=== PATIENT | female | born 1950 | race Caucasian/White ===

== ENCOUNTER → 2019-01-31 11:05 | Outpatient (CLI) | payer MEDICARE, OTHER, SELFPAY ==
[2019-01-31 12:08] LABS: Add Manual Diff / Slide Review NO; Basophils Absolute Auto 100 /uL (0-100); Basophils Percent Auto 1.1 % (0-2); Eosinophils Absolute Auto 100 /uL (0-450); Eosinophils Percent Auto 1.6 % (2-4); Hematocrit 44.7 % (36-46); Hemoglobin 14.9 g/dL (12.0-16.0); Lymphocytes Absolute Auto 2500 /uL (1100-4500); Lymphocytes Percent Auto 37.5 % (25-40); Mean Corpuscular HGB Conc 33.4 % (30-36); Mean Corpuscular Hemoglobin 29.4 PG (26-34); Mean Corpuscular Volume 88.1 fL (80-100); Monocytes Absolute Auto 600 /uL (0-900); Monocytes Percent Auto 9.3 % (3-14); Neutrophils Absolute Auto 3400 /uL (1500-7000); Neutrophils Percent Auto 50.5 % (50-75); Platelet Count 314 X10^3/uL (150-400); Red Blood Cell Count 5.07 X10^6/uL (4.0-5.2); Red Cell Distribution Width 13.4 % (11.6-14.8); White Blood Cell Count 6.8 X10^3/uL (4.5-11.0)
[2019-01-31 12:31] LABS: Alanine Aminotransferase 17 IU/L (<35); Albumin 4.2 g/dL (3.5-5.0); Albumin Globulin Ratio 1.4 (1.0-2.8); Alkaline Phosphatase 79 U/L (38-126); Aspartate Aminotransferase 20 IU/L (14-36); BUN Creatinine Ratio 22.5 (6-22); Bilirubin Total 0.6 mg/dL (0.2-1.3); Blood Urea Nitrogen 18 mg/dL (7-17); Carbon Dioxide 29 mmol/L (22-32); Chloride 105 mmol/L (98-107); Cholesterol 244 mg/dL (140-199); Estimated Glomerular Filt Rate > 60.0 mL/min (>60); Globulin 2.9 g/dL (1.7-4.1); Glucose 94 mg/dL (80-110); HDL Cholesterol 64 mg/dL (40-60); HEMOLYSIS < 15 (0-50); LDL Cholesterol Calculated 169 mg/dL (<100); Potassium 5.1 mmol/L (3.4-5.1); Sodium 141 mmol/L (137-145); Total Protein 7.1 g/dL (6.3-8.2); Triglycerides 55 mg/dL (35-150)
[2019-01-31 13:03] LABS: Free T3, Triiodothyronine Free 3.77 pg/mL (2.77-5.27); Free T4, Direct Thyroxine 0.99 ng/dL (0.78-2.19)
[2019-02-02 18:06] LABS: Urea Breath Test >18YRS NOT DETECTED
== END ==
PROVIDERS: PCP Nurse Practitioner; Visit Provider Nurse Practitioner
DX: K21.9 Gastro-esophageal reflux disease without esophagitis (principal); K22.10 Ulcer of esophagus without bleeding; E78.5 Hyperlipidemia, unspecified; R00.2 Palpitations
CPT/HCPCS: 80053; 80061; 83013; 84439; 84443; 84481; 85025

== ENCOUNTER → 2019-02-22 12:27 | Outpatient (CLI) | payer MEDICARE, OTHER, SELFPAY ==
--- NOTE | 2019-02-22 | DI.MG.S_ITS ---
BILATERAL DIGITAL SCREENING MAMMOGRAM 3D/2D WITH CAD: 02/22/2019 CLINICAL: Routine screening. Comparison is made to exam dated: 04/06/2017 [facility]. The tissue of both breasts is heterogeneously dense. This may lower the sensitivity of mammography. Current study was also evaluated with a Computer Aided Detection (CAD) system. No significant masses, calcifications, or other findings are seen in either breast. There has been no significant interval change. IMPRESSION: NEGATIVE There is no mammographic evidence of malignancy. A 1 year screening mammogram is recommended. This exam was interpreted at Station ID: [id number]. NOTE: For mammograms, a report in lay terms will be sent to the patient. Approximately 15% of breast malignancies will not be visualized mammographically. In the management of a palpable breast mass, a negative mammogram must not discourage biopsy of a clinically suspicious lesion. Electronically Signed By: Hema galeas/glory:02/22/2019 13:11:15 letter sent: Normal Exam ACR BI-RADS Category 1: Negative [id number]
--- NOTE | 2019-02-22 12:35 | DI.US.S_ITS ---
PROCEDURE: US CAROTID DOPPLER BI INDICATIONS: OSTEOPOROSIS STENOSIS OF CAROTID ARTERY TECHNIQUE: Color and pulse Doppler interrogation was performed of both carotid systems, with image documentation and velocity measurements. COMPARISON: None. FINDINGS: Stenosis calculations are based on SRU (Society of Radiologists in Ultrasound) criteria. Right side: Brachial blood pressure: 117/64 mm Hg. Common carotid artery peak systolic velocity: 94 cm/sec. Internal carotid artery peak systolic velocity: 82 cm/sec. Internal carotid artery end diastolic velocity: 32 cm/sec. External carotid artery peak systolic velocity: 83 cm/sec. ICA/CCA peak systolic ratio: 0.9. Palm scale imaging description: Mild scattered plaque. Percent internal carotid artery stenosis: Less than 50% stenosis. Vertebral artery: Flow direction is antegrade. Left side: Brachial blood pressure: 114/68 mm Hg. Common carotid artery peak systolic velocity: 71 cm/sec. Internal carotid artery peak systolic velocity: 68 cm/sec. Internal carotid artery end diastolic velocity: 30 cm/sec. External carotid artery peak systolic velocity: 85 cm/sec. ICA/CCA peak systolic ratio: 1.0. Palm scale imaging description: Mild scattered plaque. Percent internal carotid artery stenosis: Less than 50%. Vertebral artery: Flow direction is antegrade. IMPRESSION: 1. Less than 50% bilateral internal carotid artery stenosis. 2. Bilateral cervical neck lymph nodes with the largest measuring up to 8mm in maximal short axis. Recommend clinical correlation and management. Dictated by: Jett NIX Interpreted: Remi Nova MD on 02/22/2019 at 14:48 Approved by: Remi Nova M.D. on 02/22/2019 at 19:46
== END ==
PROVIDERS: PCP Nurse Practitioner; Visit Provider Nurse Practitioner
DX: I65.23 Occlusion and stenosis of bilateral carotid arteries (principal); Z12.31 Encounter for screening mammogram for malignant neoplasm of breast; Z13.820 Encounter for screening for osteoporosis; M85.852 Other specified disorders of bone density and structure, left thigh; Z78.0 Asymptomatic menopausal state; F17.200 Nicotine dependence, unspecified, uncomplicated
CPT/HCPCS: 77063; 77067; 77080; 93880

== ENCOUNTER → 2021-09-02 14:15 | Outpatient (CLI) | payer MEDICARE, OTHER, SELFPAY ==
[2021-09-02 14:52] LABS: Alanine Aminotransferase 14 IU/L (<35); Albumin 4.2 g/dL (3.5-5.0); Albumin Globulin Ratio 1.3 (1.0-2.8); Alkaline Phosphatase 66 U/L (38-126); Aspartate Aminotransferase 20 IU/L (14-36); BUN Creatinine Ratio 21.1 (6-22); Bilirubin Total 0.8 mg/dL (0.2-1.3); Blood Urea Nitrogen 16 mg/dL (7-17); Calcium 9.5 mg/dL (8.4-10.2); Carbon Dioxide 27 mmol/L (22-32); Chloride 106 mmol/L (98-107); Cholesterol 232 mg/dL (140-199); Estimated Glomerular Filt Rate > 60 mL/min (>60); Globulin 3.3 g/dL (1.7-4.1); Glucose 94 mg/dL (80-110); HDL Cholesterol 57 mg/dL (40-60); HEMOLYSIS < 15 (0-50); LDL Cholesterol Calculated 155 mg/dL (<100); Potassium 4.5 mmol/L (3.4-5.1); Sodium 143 mmol/L (137-145); Total Protein 7.5 g/dL (6.3-8.2); Triglycerides 98 mg/dL (35-150)
[2021-09-02 17:30] LABS: Hep C Virus Ab w/Reflex Quant NEGATIVE s/c (NEGATIVE)
[2021-09-03 03:13] LABS: Free T3, Triiodothyronine Free 3.83 pg/mL (2.77-5.27); Free T4, Direct Thyroxine 1.18 ng/dL (0.78-2.19)
== END ==
PROVIDERS: PCP Nurse Practitioner; Referring Provider Nurse Practitioner; Visit Provider Nurse Practitioner
DX: E78.5 Hyperlipidemia, unspecified (principal); R00.2 Palpitations; Z79.899 Other long term (current) drug therapy
CPT/HCPCS: 36415; 80053; 80061; 84439; 84443; 84481; 86803

== ENCOUNTER 2022-10-27 08:11 | Emergency (ER) | payer MEDICARE, OTHER, SELFPAY ==
[2022-10-27] VITALS (11 sets, daily range): BP systolic 94–158; BP diastolic 51–68; PULSE 52–73; RESP 14–18; TEMP 36.7; O2SAT 95–99; BMI 22.3
--- NOTE | 2022-10-27 08:40 | DI.CT.S_ITS ---
PROCEDURE: CT ABDOMEN PELVIS W CON INDICATIONS: IV contrast only/right lower quadrant pain TECHNIQUE: After the administration of oral and IV contrast, axial sections were acquired from the lung bases to the pubic symphysis. Coronal and sagittal reformats were performed. For radiation dose reduction, the following was used: automated exposure control, adjustment of mA and/or kV according to patient size. COMPARISON: None. FINDINGS: Image quality: Excellent. Lung bases: Unremarkable. Heart: No significant findings. ABDOMEN: Liver: Normal size. There is a 1.3 cm hypodensity the inferior right hepatic lobe, most likely a cyst or hemangioma. Gallbladder: Gallbladder is contracted. Possible small gallstones or gallbladder polyps. Biliary ducts: Unremarkable. Pancreas: Unremarkable. Spleen: Unremarkable. Adrenal Glands: Unremarkable. Kidneys and Ureters: There are couple of hypodense nodules in right kidney, probably renal cyst. Stomach and Bowel: Stomach is contracted. Gastric wall appears thickened, which is likely due to lack of distention. Small bowel loops and colon are normal in caliber. Appendix is normal. There is a large amount of stool in colon. Peritoneum: No abnormal intraperitoneal fluid. No free air. Ventral Wall: No hernia. Abdominal Nodes: No retroperitoneal or mesenteric adenopathy by size criteria. Vessels: Aorta and inferior vena cava are normal in size. PELVIS: Pelvic Organs: Uterus is unremarkable. Ovaries are not visualized. No adnexal mass. Mildly prominent gonadal veins are noted. Bladder: Unremarkable. Pelvic Nodes: No enlarged lymph nodes. Miscellaneous: No inguinal hernias are seen. Bones: Moderate to severe degenerative disc and facet disease in the lumbar spine. IMPRESSION: 1. Normal appendix. A cause for right lower quadrant pain is not definitively identified. 2. A large amount of stool in colon. 3. Contracted gallbladder. Question small gallstones versus gallbladder polyps. If clinically indicated, ultrasound can be obtained for further evaluation. 4. Prominent gonadal veins suggesting pelvic congestion syndrome. Dictated by: Karin Swann M.D. on 10/27/2022 at 11:27 Approved by: Karin Swann M.D. on 10/27/2022 at 11:34
--- NOTE | 2022-10-27 08:45 | ED.ABDPAIN ---
HPI - Abdominal Pain General Chief Complaint: Abdominal Pain Stated Complaint: poss apendix problems Time Seen by Provider: 10/27/22 08:35 Source: patient Mode of arrival: Ambulatory History of Present Illness HPI narrative: Patient here with . Complains of sudden onset right lower quadrant pain radiating to the back with nausea but no fever vomiting. No urinary complaints. Pain is gone now. No recent illness. No cough cold congestion or fever chills. Patient still has her appendix. Denies any urinary frequency or urgency. No Hematuria. Related Data Home Medications Medication Instructions Recorded Confirmed [ph miracle] PO DAILY ##0 09/06/21 cholecalciferol (vitamin D3) 250 250 mcg PO DAILY 09/06/21 09/06/21 mcg (10,000 unit) capsule magnesium glycinate PO 09/06/21 09/06/21 Previous Rx's Medication Instructions Recorded niacin 500 mg tablet,extended 500 mg PO BEDTIME #90 tabs 09/06/21 release Allergies Allergy/AdvReac Type Severity Reaction Status Date / Time No Known Drug Allergies Allergy Verified 10/27/22 08:15 Review of Systems Review of Systems Narrative: GENERAL: negative chills, fatigue, malaise, fever, sweats. HEENT: negative sinus pain, ear pain, sore throat RESPIRATORY: negative dyspnea, cough CARDIOVASCULAR: negative chest pain, palpitations GASTROINTESTINAL: Positive nausea, negative vomiting, positive abdominal pain : negative dysuria, frequency, hematuria MUSCULOSKELETAL: negative muscle or bony pain SKIN: negative rash, skin lesions NEUROLOGIC: negative weakness, numbness ROS Unobtainable: All systems reviewed & are unremarkable except as noted in HPI and below Patient History Medical History Cervical somatic dysfunction Chicken pox Chronic neck pain Chronic shoulder pain Chronic thoracic back pain Cranial somatic dysfunction Elevated low density lipoprotein (LDL) cholesterol level Measles Migraine Mumps Rib pain on right side Somatic dysfunction of rib Stiff neck Thoracic region somatic dysfunction TMJ click Upper extremity somatic dysfunction Surgical History Anesthesia History of cataract surgery (~2008) History of tonsillectomy (~1964) Family History Father Cancer Hypertension Stroke Mother Cancer Brother Cancer Grandfather Cancer Social History Smoking Status: Current every day smoker alcohol intake: current substance use type: does not use Smoking Status: Current every day smoker alcohol intake frequency: holidays/special occasions only Substance Use Type: does not use Exam Narrative Exam Narrative: GENERAL: in no distress, not toxic not dyspneic HEAD: Normocephalic. EYES: Pupils equal round ENT: Mucous membranes moist. NECK: Trachea midline. CARDIOVASCULAR: Regular rate and rhythm RESPIRATORY: Clear to auscultation. Breath sounds equal bilaterally. No wheezes, rales, or rhonchi. GASTROINTESTINAL: Abdomen soft, abdomen is soft flat nontender no peritoneal signs. No McBurney point tenderness. No CVA tenderness. No pain out of proportion to exam. Bowel sounds are present EXTREMITIES: No gross deformities. BACK: No flank tenderness. NEURO: AOx4. SKIN: Warm and dry PSYCH: Not anxious, is cooperative Initial Vital Signs Initial Vital Signs: Vital Signs Temperature 98.0 F 10/27/22 08:15 Pulse Rate 62 10/27/22 08:15 Respiratory Rate 18 10/27/22 08:15 Blood Pressure 115/65 10/27/22 08:15 Pulse Oximetry 97 10/27/22 08:15 Oxygen Delivery Method Room Air 10/27/22 08:15 Course Orders Ordered: Discontinued Medications Sodium Chloride (Normal Saline 0.9%) 1,000 mls @ 1,000 mls/hr IV BOLUS ONE Stop: 10/27/22 09:39 Last Infusion: 10/27/22 09:50 Dose: 0 mls/hr Documented By: Admin: 10/27/22 08:48 Dose: 1,000 mls/hr Documented By: JAYY Ondansetron HCl (Ondansetron 4 Mg Odt) 4 mg PO NOW PRN PRN Reason: Nausea And Vomiting Ondansetron HCl (Ondansetron 4 Mg/2 Ml Inj) 4 mg IV NOW PRN PRN Reason: Nausea And Vomiting Last Admin: 10/27/22 08:48 Dose: 4 mg Documented By: JAYY Vital Signs Vital signs: Vital Signs - 8 hr 10/27/22 08:15 10/27/22 08:53 10/27/22 08:54 Temperature 98.0 F Pulse Rate 62 60 56 L Respiratory Rate 18 14 Blood Pressure 115/65 Pulse Oximetry 97 97 96 Oxygen Delivery Method Room Air Room Air 10/27/22 08:54 10/27/22 09:00 10/27/22 09:00 Temperature Pulse Rate 52 L Respiratory Rate 14 Blood Pressure 94/51 L 114/53 L Pulse Oximetry 97 Oxygen Delivery Method 10/27/22 09:04 10/27/22 09:30 10/27/22 10:00 Temperature Pulse Rate 52 L 52 L 61 Respiratory Rate Blood Pressure Pulse Oximetry 98 97 98 Oxygen Delivery Method Room Air 10/27/22 10:21 10/27/22 10:21 10/27/22 10:30 Temperature Pulse Rate 71 Respiratory Rate 16 Blood Pressure 111/54 L 107/59 L Pulse Oximetry 98 Oxygen Delivery Method 10/27/22 10:30 10/27/22 11:00 10/27/22 11:00 Temperature Pulse Rate 73 55 L Respiratory Rate Blood Pressure 117/57 L Pulse Oximetry 95 95 Oxygen Delivery Method Room Air MDM - Abdominal Pain Lab Data 10/27/22 08:36 10/27/22 09:25 Labs: Lab Results 10/27/22 10/27/22 10/27/22 Range/Units 08:36 09:25 12:21 WBC 9.0 (4.5-11.0) X10^3/uL RBC 5.13 (4.0-5.2) X10^6/uL Hgb 15.1 (12.0-16.0) g/dL Hct 44.3 (36-46) % MCV 86.4 (80-100) fL MCH 29.4 (26-34) PG MCHC 34.0 (30-36) % RDW 13.6 (11.6-14.8) % Plt Count TNP Neut % (Auto) 41.7 L (50-75) % Lymph % (Auto) 45.0 H (25-40) % [place] % (Auto) 10.3 (3-14) % Eos % (Auto) 1.8 L (2-4) % Baso % (Auto) 1.2 (0-2) % Neut # (Auto) 3700 (0080-5383) /uL Lymph # (Auto) 4000 (5738-2305) /uL [place] # (Auto) 900 (0-900) /uL Eos # (Auto) 200 (0-450) /uL Baso # (Auto) 100 (0-100) /uL Platelet Estimate Adequate on smear RBC Morphology Normal morphology Sodium 140 (137-145) mmol/L Potassium 4.0 (3.4-5.1) mmol/L Chloride 108 H (98-107) mmol/L Carbon Dioxide 28 (22-32) mmol/L BUN 22 H (7-17) mg/dL Creatinine 0.81 (0.52-1.04) mg/dL Estimated GFR > 60 (>60) mL/min BUN/Creatinine Ratio 27.2 H (6-22) Glucose 112 H (80-110) mg/dL Calcium 8.6 (8.4-10.2) mg/dL Total Bilirubin 0.4 (0.2-1.3) mg/dL AST 18 (14-36) IU/L ALT 17 (<35) IU/L Alkaline Phosphatase 60 (38-126) U/L Total Protein 6.5 (6.3-8.2) g/dL Albumin 3.6 (3.5-5.0) g/dL Globulin 2.9 (1.7-4.1) g/dL Albumin/Globulin Ratio 1.2 (1.0-2.8) Lipase 102 (23-300) U/L Urine RBC 5-10/hpf H (0-5/HPF) Urine WBC 0-1/hpf (0-5/HPF) Ur Squamous Epith Cells 0-1 /hpf (0-5/HPF) Urine Bacteria Few (2-10) H (None) Urine Mucus 1+ H (Negative) Ur Culture Indicated? Cult not indicated Point of care testing: Urine Dip Bedside Urine Glucose Negative Bedside Urine Bilirubin - Negative Bedside Urine Ketone - Negative Urine Specific [place] 1.010 Bedside Urine Occult Blood ++ Bedside Urine pH 6.0 Bedside Urine Protein - Negative Bedside Urine Urobilinogen - Negative Bedside Urine Nitrite - Negative Bedside Urine Leukocytes - Negative Esterase Imaging Data CT scan - abdomen/pelvis: Radiologist's Impression: [address] [id number] Scan ReportSigned Patient: Marcella Martinez [facility]#: [id number]: 1Acct:[id number]/Sex: 72 / FDate of Service: 10/27/22Loc: EDAccession Number: [id number] Procedure: CT abdomen pelvis w con Ordering Provider: Tony Olmstead MD PROCEDURE: CT ABDOMEN PELVIS W CON INDICATIONS: IV contrast only/right lower quadrant pain TECHNIQUE: After the administration of oral and IV contrast, axial sections were acquired from the lung bases to the pubic symphysis. Coronal and sagittal reformats were performed. For radiation dose reduction, the following was used: automated exposure control, adjustment of mA and/or kV according to patient size. COMPARISON: None. FINDINGS: Image quality: Excellent. Lung bases: Unremarkable. Heart: No significant findings. ABDOMEN: Liver: Normal size. There is a 1.3 cm hypodensity the inferior right hepatic lobe, most likely a cyst or hemangioma. Gallbladder: Gallbladder is contracted. Possible small gallstones or gallbladder polyps. Biliary ducts: Unremarkable. Pancreas: Unremarkable. Spleen: Unremarkable. Adrenal Glands: Unremarkable. Kidneys and Ureters: There are couple of hypodense nodules in right kidney, probably renal cyst. Stomach and Bowel: Stomach is contracted. Gastric wall appears thickened, which is likely due to lack of distention. Small bowel loops and colon are normal in caliber. Appendix is normal. There is a large amount of stool in colon. Peritoneum: No abnormal intraperitoneal fluid. No free air. Ventral Wall: No hernia. Abdominal Nodes: No retroperitoneal or mesenteric adenopathy by size criteria. Vessels: Aorta and inferior vena cava are normal in size. PELVIS: Pelvic Organs: Uterus is unremarkable. Ovaries are not visualized. No adnexal mass. Mildly prominent gonadal veins are noted. Bladder: Unremarkable. Pelvic Nodes: No enlarged lymph nodes. Miscellaneous: No inguinal hernias are seen. Bones: Moderate to severe degenerative disc and facet disease in the lumbar spine. IMPRESSION: 1. Normal appendix. A cause for right lower quadrant pain is not definitively identified. 2. A large amount of stool in colon. 3. Contracted gallbladder. Question small gallstones versus gallbladder polyps. If clinically indicated, ultrasound can be obtained for further evaluation. 4. Prominent gonadal veins suggesting pelvic congestion syndrome. Dictated by: Karin Swann M.D. on 10/27/2022 at 11:27 Approved by: Karin Swann M.D. on 10/27/2022 at 11:34 [facility] Narrative Medical decision making narrative: Patient here with . Complains of sudden onset right lower quadrant pain radiating to the back with nausea but no fever vomiting. No urinary complaints. Pain is gone now. No recent illness. No cough cold congestion or fever chills. Patient still has her appendix. Denies any urinary frequency or urgency. No hematuria After history and exam CBC CMP urinalysis Zofran normal saline CT abdomen pelvis MDM CC: Right lower arm pain Complicating co-morbidities: None Data collected from: Patient and Medical records reviewed: No recent visit for this complaint Differential considered: Includes but not limited to appendicitis kidney stone pyelonephritis UTI bowel obstruction Exam documented above, pertinent findings include: Nontender abdomen Lab Test results independently reviewed as above. Pertinent findings: WBC 9.0 hemoglobin 15.1 sodium 140 potassium 4.0 BUN 22 creatinine 0.81 AST 18 ALT 17 lipase 102 urinalysis 0-1 WBC few bacteria Imaging studies independently reviewed: CT abdomen pelvis no acute fine large amount of stool. Normal appendix. Consultations: None required Treatments: Zofran normal saline Re-evaluations: 1:00 p.m.. Patient pain-free. No nausea or vomiting. Reviewed results with patient. This could be due to arge stool burden causing pain along the course of the colonic pathway. Right lower quadrant at the origin. Not toxic at discharge. Return precautions with beautiful there. Appendicitis precautions reviewed with her. Onset less than 12 hours. She agrees with treatment plan and discharged home. Discussion: Appropriate for discharge home. Appendicitis precautions reviewed with patient. Nontoxic at discharge. No pain nausea or vomiting during course of stay. Urinalysis reviewed, no urinary complaints. No antibiotics indicated. No prescriptions indicated. Patient desires discharge home. Return precautions reviewed with her. She desires discharge home Diagnosis: Abdominal pain Discharge Plan Departure Patient Disposition: Home Clinical Impression: Abdominal pain Instructions: DI for Abdominal Pain-Adult Activity Restrictions/Additional Instructions: See family doctor within a week for re-evaluation. Be sure to increase dietary daily fruits vegetables and salads to increase and promote bowel movements. CT scan imaging blood work are reassuring today. It does show a lot of stool retention on your CT scan. Return if worse if any questions or concerns. No prescriptions indicated at this time. Prescriptions: No Action [ph miracle] PO DAILY Qty: 0 Rx Instructions: Lung support, activated oxygen Vit C, Mag sodium, bioflavonoid Complex MTV cholecalciferol (vitamin D3) 250 mcg (10,000 unit) capsule 250 mcg PO DAILY Rx Instructions: with K2 magnesium glycinate PO Rx Instructions: taking for leg cramps, HS niacin 500 mg tablet extended release 500 mg PO BEDTIME Qty: 90 3RF Rx Instructions: Take 1 tab at bedtime daily for elevated cholesterol Referrals: Nkechi Fierro ARNP [Primary Care Provider] - Stand Alone Forms: Patient Portal/API
[2022-10-27] MEDS: ONDANSETRON 4 MG/2 ML INJ IV (08:48)
[2022-10-27] MEDS: SODIUM CHLORIDE 0.9% 1,000 ML 1000 ML IV (08:48)
[2022-10-27 09:02] LABS: Basophils Absolute Auto 100 /uL (0-100); Basophils Percent Auto 1.2 % (0-2); Eosinophils Absolute Auto 200 /uL (0-450); Eosinophils Percent Auto 1.8 % (2-4); Hematocrit 44.3 % (36-46); Hemoglobin 15.1 g/dL (12.0-16.0); Lymphocytes Absolute Auto 4000 /uL (1100-4500); Mean Corpuscular Hemoglobin 29.4 PG (26-34); Mean Corpuscular Volume 86.4 fL (80-100); Monocytes Absolute Auto 900 /uL (0-900); Monocytes Percent Auto 10.3 % (3-14); Neutrophils Absolute Auto 3700 /uL (1500-7000); Neutrophils Percent Auto 41.7 % (50-75); Red Blood Cell Count 5.13 X10^6/uL (4.0-5.2); Red Cell Distribution Width 13.6 % (11.6-14.8)
[2022-10-27 09:20] LABS: Add Manual Diff / Slide Review SLIDE REVIEW
[2022-10-27 09:21] LABS: Platelet Estimate Adequate on smear; RBC Morphology Normal Morphology
[2022-10-27 09:51] LABS: Alanine Aminotransferase 17 IU/L (<35); Albumin 3.6 g/dL (3.5-5.0); Albumin Globulin Ratio 1.2 (1.0-2.8); Alkaline Phosphatase 60 U/L (38-126); Aspartate Aminotransferase 18 IU/L (14-36); BUN Creatinine Ratio 27.2 (6-22); Bilirubin Total 0.4 mg/dL (0.2-1.3); Blood Urea Nitrogen 22 mg/dL (7-17); Calcium 8.6 mg/dL (8.4-10.2); Carbon Dioxide 28 mmol/L (22-32); Chloride 108 mmol/L (98-107); Estimated Glomerular Filt Rate > 60 mL/min (>60); Globulin 2.9 g/dL (1.7-4.1); Glucose 112 mg/dL (80-110); HEMOLYSIS < 15 (0-50); Lipase 102 U/L (23-300); Sodium 140 mmol/L (137-145); Total Protein 6.5 g/dL (6.3-8.2)
[2022-10-27 12:53] LABS: Bacteria Urine Few (2-10); Culture Indicated Urine Cult Not Indicated; Mucus Urine 1+ (Negative); RBC Urine 5-10/HPF (0-5/HPF); Squamous Epithelial Cell Urine 0-1 /HPF (0-5/HPF); WBC Urine 0-1/HPF (0-5/HPF)
== END 2022-10-27 13:21 | disposition home or self-care (01) ==
PROVIDERS: Emergency Provider Emergency Medicine; PCP Nurse Practitioner
DX: R10.31 Right lower quadrant pain (principal)
CPT/HCPCS: 36415; 74177; 80053; 81003; 81015; 83690; 85025; 96361; 96374; 99284; J2405; Q9967

== ENCOUNTER → 2023-09-20 12:55 | Outpatient (CLI) | payer MEDICARE, OTHER, SELFPAY ==
--- NOTE | 2023-09-20 12:57 | EKG_ITS ---
[facility] [address] [place] [address] Test Date: 2023-09-20 Pat Name: Marcella Martinez Department: [facility] Room: Gender: Female [place]ip[place] Man: ONI : 1950 Requested By: Order Number: [id number] Reading MD: Antonino Hooker Measurements Intervals [place] Rate: 47 P: 27 RI: 140 QRS: 46 QRSD: 82 T: 57 QT: 466 QTc: 412 Interpretive Statements Sinus bradycardia Electronically Signed On 09-20-2023 16:49:57 PDT by Antonino Hooker
[2023-09-20 14:18] LABS: Add Manual Diff / Slide Review NO; Basophils Absolute Auto 100 /uL (0-100); Eosinophils Absolute Auto 100 /uL (0-450); Eosinophils Percent Auto 2.2 % (2-4); Hematocrit 44.7 % (36-46); Lymphocytes Absolute Auto 3000 /uL (1100-4500); Lymphocytes Percent Auto 44.8 % (25-40); Mean Corpuscular HGB Conc 33.5 % (30-36); Mean Corpuscular Hemoglobin 29.4 PG (26-34); Mean Corpuscular Volume 87.7 fL (80-100); Monocytes Absolute Auto 800 /uL (0-900); Monocytes Percent Auto 11.6 % (3-14); Neutrophils Absolute Auto 2700 /uL (1500-7000); Neutrophils Percent Auto 40.4 % (50-75); Platelet Count 352 X10^3/uL (150-400); Red Cell Distribution Width 13.6 % (11.6-14.8); White Blood Cell Count 6.6 X10^3/uL (4.5-11.0)
[2023-09-20 14:36] LABS: Alanine Aminotransferase 18 IU/L (<35); Albumin 4.2 g/dL (3.5-5.0); Albumin Globulin Ratio 1.5 (1.0-2.8); Alkaline Phosphatase 78 U/L (38-126); Aspartate Aminotransferase 21 IU/L (14-36); Bilirubin Total 0.5 mg/dL (0.2-1.3); Blood Urea Nitrogen 23 mg/dL (7-17); Calcium 9.6 mg/dL (8.4-10.2); Carbon Dioxide 26 mmol/L (22-32); Chloride 108 mmol/L (98-107); Estimated Glomerular Filt Rate > 60 mL/min (>60); Globulin 2.8 g/dL (1.7-4.1); Glucose 94 mg/dL (80-110); HEMOLYSIS < 15 (0-50); Sodium 140 mmol/L (137-145)
[2023-09-20 14:50] LABS: Free T3, Triiodothyronine Free 3.58 pg/mL (2.77-5.27); Free T4, Direct Thyroxine 1.06 ng/dL (0.78-2.19)
[2023-09-20 15:04] LABS: Thyroid Stimulating Hormone 1.65 uIU/mL (0.47-4.68)
== END ==
LOC: LAB 12:56
PROVIDERS: PCP Nurse Practitioner; Referring Provider Nurse Practitioner; Visit Provider Nurse Practitioner
DX: Z01.419 Encounter for gynecological examination (general) (routine) without abnormal findings (principal); M79.602 Pain in left arm; M70.922 Unspecified soft tissue disorder related to use, overuse and pressure, left upper arm
CPT/HCPCS: 36415; 80053; 84439; 84443; 84481; 85025; 93005

== ENCOUNTER → 2023-09-25 16:35 | Outpatient (CLI) | payer MEDICARE, OTHER, SELFPAY ==
[2023-09-25 17:49] LABS: HEMOLYSIS < 15 (0-50); Potassium 4.5 mmol/L (3.4-5.1)
== END ==
PROVIDERS: PCP Nurse Practitioner; Referring Provider Nurse Practitioner; Visit Provider Nurse Practitioner
DX: E87.5 Hyperkalemia (principal)
CPT/HCPCS: 84132

== ENCOUNTER → 2023-09-28 10:08 | Outpatient (CLI) | payer MEDICARE, OTHER, SELFPAY ==
--- NOTE | 2023-09-28 10:10 | DI.CT.S_ITS ---
PROCEDURE: CT LUNG LOW DOSE SCREENING INDICATIONS: Tobacco use disorder TECHNIQUE: Noncontrast 2.0-2.5 mm thick sections acquired from the pulmonary apices to the posterior costophrenic angles. 7 mm thick axial MIP, and 5 mm coronal and sagittal reformats were then acquired. For radiation dose reduction, the following was used: automated exposure control, adjustment of mA and/or kV according to patient size. COMPARISON: None. FINDINGS: Image quality: Diagnostic. Lower Neck: No enlarged lymph nodes. Thyroid: No thyroid nodules which require sonographic follow up, per consensus guidelines. Axillae: No enlarged lymph nodes. Chest Wall: Unremarkable. Bones: Unremarkable. Lungs and Pleura: No pneumothorax or pleural effusions. No consolidation or suspicious nodules. Heart: Heart size is normal. No pericardial effusion. Moderate coronary artery calcifications for age. Thoracic Vessels: The aorta and pulmonary arteries demonstrate normal size. Mediastinum and Cassie: No enlarged lymph nodes. Esophagus: No wall thickening. No hiatal hernia. Upper Abdomen: Visualized upper abdomen solid organs and bowel loops appear normal. IMPRESSION: No suspicious pulmonary nodules. LUNG-RADS 1; continued annual screening, if eligible. Clinically Significant Non-pulmonary Findings: None. Dictated by: Roney Brown M.D. on 09/28/2023 at 17:11 Approved by: Roney Brown M.D. on 09/28/2023 at 17:13
--- NOTE | 2023-09-28 10:10 | DI.US.S_ITS ---
PROCEDURE: US CAROTID DOPPLER BI INDICATIONS: Tobacco use disorder, left arm pressure TECHNIQUE: Color and pulse Doppler interrogation was performed of both carotid systems, with image documentation and velocity measurements. COMPARISON: [facility], , CAROTID DOPPLER BI, 02/22/2019, 13:17. FINDINGS: Stenosis calculations are based on SRU (Society of Radiologists in Ultrasound) criteria. Right side: Brachial blood pressure: 125/71 mm Hg. Common carotid artery peak systolic velocity: 85 cm/sec. Internal carotid artery peak systolic velocity: 97 cm/sec. Previously 82 centimeter/second. Internal carotid artery end diastolic velocity: 22 cm/sec. External carotid artery peak systolic velocity: 89 cm/sec. ICA/CCA peak systolic ratio: 1.3 . Paml scale imaging description: Mild atherosclerotic plaque. Percent internal carotid artery stenosis: Less than 50 percent . Vertebral artery: Flow direction is antegrade. Left side: Brachial blood pressure: 121/71 mm Hg. Common carotid artery peak systolic velocity: 98 cm/sec. Internal carotid artery peak systolic velocity: 73 cm/sec. Previously 68. Internal carotid artery end diastolic velocity: 26 cm/sec. External carotid artery peak systolic velocity: 115 cm/sec. ICA/CCA peak systolic ratio: 0.8 . Palm scale imaging description: Moderate atherosclerotic plaque. This is incompletely calcified. Percent internal carotid artery stenosis: Less than 50 percent. Vertebral artery: Flow direction is antegrade. IMPRESSION: Less than 50 percent stenosis of the internal carotid arteries by peak systolic velocity criteria. Incompletely calcified plaque in the left internal carotid artery, which may be a high risk for rupture Dictated by: Roney Brown M.D. on 09/28/2023 at 15:51 Approved by: Roney Brown M.D. on 09/28/2023 at 15:52
--- NOTE | 2023-09-28 10:10 | DI.RAD.S_ITS ---
PROCEDURE: XR DEXA AXIAL SKELETON INDICATIONS: osteoporosis COMPARISON: [facility], CR, XR DEXA AXIAL SKELETON, 02/22/2019, 12:55. FINDINGS: Lumbar Spine: Bone mineral density 0.952 g/cm2, T score -0.6 Left Hip: Bone mineral density 0.741 g/cm2, T score -1.6, Left Femoral Neck: Bone mineral density 0.617 g/cm2, T score -2.1 Right Hip: Bone mineral density 0.723 g/cm2, T score -1.8 Right Femoral Neck: Bone mineral density 0.642 g/cm2, T score -0.9, Fracture Risk Calculation (when applicable): 10-year fracture risk of a major osteoporotic fracture < 22% and of a hip fracture < 3%. (T score greater or equal to -1.0 to: NORMAL) (T score from -1.1 to -2.4: OSTEOPENIA) (T score less than or equal to -2.5: OSTEOPOROSIS) IMPRESSION: The lumbar spine, bilateral hips in bilateral femoral necks are osteopenic Follow-up guidelines as follows: Osteoporosis: Consider a repeat DEXA and Vertebral Fracture Assessment (VFA) exam in 2 years or sooner if medically necessary, to reassess this patient's status. Osteopenia: Consider a repeat DEXA in 2-3 years to reassess this patient's status, or if there is a new clinical indication. Normal: Consider a repeat DEXA in 5 years or sooner, or if there is a new clinical indication. All treatment decisions require clinical judgment and consideration of individual patient factors, including patient preferences, comorbidities, previous drug use, risk factors not captured in the FRAX model (e.g., frailty, falls, vitamin D deficiency, increased bone turnover, interval significant decline in bone density ) and possible under- or over-estimation of fracture risk by FRAX. In addition, the NOF Guide recommends that FDA-approved medical therapies be considered in postmenopausal women and men age >= 50 years with a: * Hip or vertebral (clinical or morphometric) fracture * T-score of <=-2.5 at the spine or hip * Ten-year fracture probability by FRAX of >= 3% for hip fracture or >=20% for major osteoporotic fracture. People with diagnosed cases of osteoporosis or at high risk for fracture should have regular bone mineral density tests. For patients eligible for Medicare, routine testing is allowed once every 2 years. The testing frequency can be increased to one year for patients who have rapidly progressing disease, those who are receiving or discontinuing medical therapy to restore bone mass, or have additional risk factors. Dictated by: Yehuda Liu M.D. on 09/28/2023 at 16:12 Approved by: Yehuda Liu M.D. on 09/28/2023 at 16:20
== END ==
PROVIDERS: PCP Nurse Practitioner; Referring Provider Nurse Practitioner; Visit Provider Nurse Practitioner
DX: I65.23 Occlusion and stenosis of bilateral carotid arteries (principal); F17.210 Nicotine dependence, cigarettes, uncomplicated; I25.10 Atherosclerotic heart disease of native coronary artery without angina pectoris; M81.0 Age-related osteoporosis without current pathological fracture; Z12.2 Encounter for screening for malignant neoplasm of respiratory organs; R20.0 Anesthesia of skin; R20.2 Paresthesia of skin
CPT/HCPCS: 71271; 77080; 93880

== ENCOUNTER 2023-11-28 07:09 | Day surgery (SDC) | payer MEDICARE, OTHER, SELFPAY ==
--- NOTE | 2023-11-28 | PATH_ITS ---
[facility] Accession Number: [id number] No. of containers..02 Tissue . 01 Material submitted: . PART A: colon - TRANSVERSE POLYP X 2 PART B: sigmoid colon - SIGMOID POLYP . 01 Diagnosis: A. Colon, transverse, polyps x2, biopsies: - Tubular adenomas (two fragments) -- B. Colon, sigmoid, polyp biopsy: - Benign colonic mucosa with benign lymphoid aggregate. - Negative for dysplasia. TXN 12/01/2023 1200 Local . 01 Electronically signed: . Lupe Lucas MD, Pathologist NPI- [id number] . 01 Gross description: . A. Received in formalin with two patient identifiers and transverse colon polyp, are multiple gasca soft tissue fragments aggregating to 1.2 x 0.7 x 0.5 cm. The two largest fragments are differentially inked and bisected, and the specimen is submitted entirely in A1-A2. B. Received in formalin with two patient identifiers and sigmoid colon polyp, is gasca soft tissue fragment, 1.0 cm in greatest dimension. Submitted in B1. ([id number]) /MRV 11/29/2023 1754 Local . 01 Pathologist provided ICD-10: D12.6 . 01 CPT . 723640, [id number] Specimen Comment: A courtesy copy of this report has been sent to [phone] Performed at: [address] [facility] [address], [place], [place] [id number] MD Herman Owens MD Phone: [phone]
[2023-11-28 07:26] VITALS: BP 119/59; PULSE 58; RESP 16; TEMP 36.7; O2SAT 97
[2023-11-28] MEDS: LACTATED RINGERS 1,000 ML 42 ML IV (07:31)
--- NOTE | 2023-11-28 08:03 | PM.HP.1 ---
History of Present Illness History of Present Illness Date Patient Seen: 11/28/23 Time Patient Seen: 08:03 Chief complaint: Screening Colonoscopy Narrative: 73-year-old woman here for 1st time screening colonoscopy. No family history of colon cancer. No abdominal concerns today. [facility] Medical History Carotid artery disease Uterine prolapse Elevated low density lipoprotein (LDL) cholesterol level TMJ click Cranial somatic dysfunction Somatic dysfunction of rib Rib pain on right side Mumps Measles Chicken pox Upper extremity somatic dysfunction Thoracic region somatic dysfunction Cervical somatic dysfunction Chronic shoulder pain Chronic thoracic back pain Chronic neck pain Stiff neck Migraine Surgical History Anesthesia History of tonsillectomy (~1964) History of cataract surgery (~2008) Family History Father Cancer Hypertension Stroke Mother Cancer Brother Cancer Grandfather Cancer Social History Smoking Status: Current every day smoker alcohol intake: current substance use type: does not use Meds Home Medications and Allergies Home Medications Medication Instructions Recorded Confirmed Type Vitamin D 5000 1 tab PO .QD 09/20/23 11/28/23 History clobetasol 0.05 % scalp solution 1 applic topical DAILY 2 weeks #50 09/20/23 11/28/23 Rx mL vitamin K2 90 mcg capsule 90 mcg PO DAILY 09/20/23 11/28/23 History nicotine 21 mg/24 hr daily 1 patch transdermal DAILY #14 ea 10/12/23 11/28/23 Rx transdermal patch (Nicoderm CQ) nicotine 14 mg/24 hr daily 1 patch transdermal Q24H #14 ea 10/25/23 11/28/23 Rx transdermal patch (Nicoderm CQ) Allergies Allergy/AdvReac Type Severity Reaction Status Date / Time No Known Drug Allergies Allergy Verified 11/28/23 07:21 Exam Vital Signs (past 8 hours): - 11/28/23 07:26 Temperature 98.1 F Pulse Rate 58 L Respiratory Rate 16 Blood Pressure 119/59 L Pulse Oximetry 97 Oxygen Delivery Method Room Air Oxygen Delivery Method Room Air Narrative Exam Narrative: General adult woman alert oriented no acute distress Chest nonlabored respiration Extremities warm well perfused Assessment & Plan Assessment and plan (1) Screening for colorectal cancer: Status: Acute Assessment & Plan narrative: The patient requires colorectal screening and colonoscopy is recommended. Technical details were discussed. Risks, benefits, alternatives explained. Risks including but not limited to myocardial infarction, aspiration, bleeding, pain, missed lesion, incomplete examination, need for further radiographic studies, intestinal injury, and need for major abdominal surgery were discussed. All questions were answered to their satisfaction, and they are in agreement with this plan. Time-Based Coding :: [TOTAL MINUTES] spent with patient and on the chart (including review of chart, obtaining history, exam, reviewing outside data, placing orders, documenting exam and treatment plan, and counseling patient) on [DATE].
[2023-11-28 08:35] VITALS: BP 97/48; PULSE 71; RESP 20; TEMP 36.2; O2SAT 96
[2023-11-28 08:40] VITALS: BP 90/49; PULSE 70; RESP 20; O2SAT 98
--- NOTE | 2023-11-28 08:43 | P.OP.COLON_ITS ---
Operative Date/Time/Diagnoses Date of procedure: 11/28/23 Time of procedure: 08:43 Pre-op diagnosis: Colorectal screening Post-op diagnosis: other (Colonic polyps x3) Procedure & Clinicians Study performed: Screening colonoscopy and polypectomy Same procedure as scheduled: Yes Indications: Screening Surgeon: [place] Procedure Notes Procedure in detail: The history and physical was performed/updated and the patient is ASA class is 2. The procedure was discussed in detail with the patient. Potential risks complications including infection, bleeding, missed diagnosis, perforation, need for surgery, and were explained. Their questions were answered and informed consent was obtained. Patient was brought to the procedure room and placed standard monitoring equipment. The patient's vital signs were monitored continuously throughout the entire procedure. Prior to starting time-out was performed. The patient was placed in the left lateral recumbent position. Procedural sedation was administered by anesthesia. Examination began with a thorough inspection of the perianal area there was no evidence of fissures, fistulae, external hemorrhoids or cutaneous malignancy. The colonoscopy scope was then placed into the anal canal and was advanced to the cecum, which was identified by the ileocecal valve, the appendiceal orifice and the confluence of the taenia. The scope was then slowly withdrawn examining colon thoroughly in all directions, irrigating it of any residual stool. The scope was retroflexed within the rectum The patient tolerated the procedure well. They will be discharged once criteria are met. The prep was of fair quality. The withdrawl time was 10 minutes. FINDINGS * Transverse colon polyps x2 5-8 mm each removed with cold snare * Sigmoid colon polyp 5 mm removed with cold snare sessile. * Diverticulosis Specimen(s): other (Transverse colon polyps x2, sigmoid colon polyp) Impression: Colonic polyp x3 Post-procedure Recommendations: High fiber diet Plan for aftercare: Follow up dependent on pathology findings Disposition: same day surgery
[2023-11-28 08:46] VITALS: BP 94/70; PULSE 78; RESP 22; TEMP 36.2; O2SAT 99
[2023-11-28 08:49] VITALS: BP 113/50; PULSE 61; RESP 19; TEMP 36.2; O2SAT 99
== END 2023-11-28 09:07 | disposition home or self-care (01) ==
PROVIDERS: PCP Family Medicine; Referring Provider Surgery; Visit Provider Surgery
PROC: 0DJD8ZZ Inspection of Lower Intestinal Tract, Via Natural or Artificial Opening Endoscopic (ICD-10-PCS; CPT 45378; principal; 2023-11-28 08:15)
DX: Z12.11 Encounter for screening for malignant neoplasm of colon (principal); K57.30 Diverticulosis of large intestine without perforation or abscess without bleeding; D12.3 Benign neoplasm of transverse colon
CPT/HCPCS: 45385; J2704